=== PATIENT | female | born 1985 | race Caucasian/White ===

== ENCOUNTER 2022-11-16 17:31 | Emergency (ER) | payer MEDICAID ==
[~2022-11-16] VITALS: Ht 154.9 cm; Wt 53.0 kg
[2022-11-16 17:35] VITALS: BP 113/83
[2022-11-16] MEDS ORDERED: PENICILLIN G BENZATHINE 1,200,000 UNITS/2ML SYR IM ONE (19:15)
[2022-11-16] MEDS ORDERED: CLIN-194 PO (19:26)
== END 2022-11-16 19:30 | disposition home or self-care (01) ==
LOC: ER 17:31
DX: K04.7 Periapical abscess without sinus (principal); Z98.890 Other specified postprocedural states
CPT/HCPCS: 96372; 99283; J0561